=== PATIENT | female | born 2005 | race Caucasian/White ===

== ENCOUNTER 2025-03-22 03:00 | Observation (INO) ==
[2025-03-22] MEDS: ONDANSETRON INJ 2 MG/ML 2 ML VIAL IV STA (03:27)
[2025-03-22] MEDS: MoRPHine SULFATE 4 MG/ML 1 ML CARP\\VIAL IV STA (03:29)
[2025-03-22] MEDS: OPTIRAY 320 100ml IV ONE (04:00)
--- NOTE | 2025-03-22 05:46 | CT Scan Report ---
EXAM: CT abd pelvis IV con only CLINICAL HISTORY: epigastric pain TECHNIQUE: Contiguous axial images were obtained from the level of the diaphragm to the pubic symphysis with intravenous contrast. Coronal and sagittal reconstructions were likewise performed and indicated to increase the sensitivity for detecting clinically relevant pathology. If IV contrast material had not been administered, the likelihood of detecting abnormalities relevant to the patient's condition would have been substantially decreased. CT scan was performed according to ALARA (as low as reasonably achievable). COMPARISON: None. FINDINGS: The visualized lung bases are clear. The liver is normal in size and attenuation. No focal liver lesions are seen. There is no intra or extrahepatic biliary ductal dilatation. Hepatic vasculature is patent. The gallbladder is present. The spleen, pancreas, and adrenal glands are unremarkable. The kidneys are normal in size and attenuation. There is no hydronephrosis or perinephric fat stranding. No renal calculi or renal masses are identified. The ureters are normal in caliber and no ureteral calculi are seen. The bladder is normal in contour. Pelvic viscera are unremarkable. No focal or diffuse bowel wall thickening or evidence of bowel obstruction is identified. No imaging evidence of appendicitis. Abdominal and pelvic vasculature is patent. No adenopathy or fluid collections are seen. No aggressive appearing osseous lesions are identified. IMPRESSION: No significant abnormality detected Electronically signed by Tavo Casey 03-22-2025 05:46 AM
--- NOTE | 2025-03-22 05:54 | Emergency Department Note ---
Impression & Plan Acute epigastric pain, Nausea, Reflux gastritis ED Provider Note CHIEF COMPLAINT: epigastric pain HISTORY OF PRESENT ILLNESS: This 19 year old female patient presents to the emergency department via private vehicle for the second time this evening for epigastric pain. The patient describes a sharp and burning sensation in the upper portion of her abdomen. She states that she went home and fell asleep for about 30 minutes in an upright position, then developed flare up of pain again. Patient return to the emergency department due to the flareup of pain. The pain is not different than it was earlier. She describes a sharp and burning sensation. She did not take any additional medications at home for her pain. Patient was medicated earlier with IV acetaminophen, Zofran, Pepcid, Protonix, GI cocktail x 2. Patient denies any chest pain or dyspnea. Last menstrual period was 1 week ago. History provided by: Patient REVIEW OF SYSTEMS: A 10 system review of systems was performed with positives and pertinent negatives listed in the history of present illness. All other systems were reviewed and are negative. ALLERGIES: NKDA PHYSICAL EXAM: VITALS: Vitals are noted on the nurse's note and reviewed by myself. GENERAL: This is a 19-year-old female, in no acute distress, nondiaphoretic, well-developed well-nourished. SKIN: The skin was without rashes, erythema, edema, or bruising. There is no tenting of the skin. Capillary refill less than 2 seconds. HEAD: Normocephalic atraumatic. EARS: External auditory canals clear, tympanic membranes pearly fischer without erythema or effusion bilaterally. No hemotympanum. Negative gustafson sign EYES: Pupils equal round and reactive to light and accommodation. Conjunctivae without injection, sclerae without icterus. Extraocular movements intact. NOSE: Patent, turbinates without inflammation or discharge. No sinus tenderness. MOUTH: Mucous membranes moist. Tonsils are not enlarged. Pharynx without erythema or exudate. Uvula midline. Airway patent. Tongue does not deviate. NECK: Supple without nuchal rigidity. No lymphadenopathy. Cervical spine is nontender. No JVD. HEART: Regular rate and rhythm without murmurs gallops or rubs. LUNGS: Clear to auscultation bilaterally without wheezes, rales or rhonchi. No retractions or accessory muscle use. ABDOMEN: Positive bowel sounds x 4. Soft, nontender, without masses or organomegaly. Loja sign negative. No guarding or rebound tenderness. MUSCULOSKELETAL: No muscle atrophy, erythema, or edema noted. Full range of motion without joint tenderness in all extremities. No tenderness to palpation. Normal gait. Strength 5/5 throughout. NEURO: Patient was alert and oriented to person place and time. No focal neurological deficits. An order was placed for continuous monitoring specialist. The monitor showed a normal sinus rhythm at a ventricular rate of 60 bpm, per my interpretation. Imaging as interpreted by myself and the radiologist revealed no acute abnormality and CT of the abdomen/pelvis, with radiologist interpretation as above. I agree with the radiologist's findings as based upon my independent interpretation. EMERGENCY DEPARTMENT COURSE: The patient was evaluated as above. I did see the patient only a few hours ago in the emergency department at her previous ED visit. The patient states she got home and fell asleep in an upright position for about 30 minutes and then developed a flareup in pain. She returned to the emergency department due to the severe pain she was experiencing. Reviewed labs from earlier. No leukocytosis or anemia. No thrombocytopenia. Renal, hepatic function and electrolytes without significant abnormality. Lipase 14. hCG negative. Urinalysis negative for blood or evidence of infection. IV access was obtained. The patient was medicated with morphine and Zofran. CT imaging was completed and reviewed by myself and radiologist as noted. CT scan was negative for acute abnormality. Patient able to tolerate p.o. clear fluids. On reevaluation, patient notes some improvement in her pain, but continued to complain of severe pain. Patient medicated with repeat dose of morphine and Carafate. Discussion with the patient regarding options of care. Did offer admission/inpatient care vs. discharge with outpatient follow-up. Pt. would prefer to stay in the hospital due to her persistent pain. Do feel that this is a reasonable option. Case was discussed with the manager party. Case was discussed with [facility] hospitalist physician. Please see hospitalist dictation regarding ongoing management and final disposition of this patient. Case was discussed with the attending physician. This visit is during a period of high volume and high acuity in the emergency department. I attest that I have personally reviewed the patient medication list. I attest that I have reviewed the patient's blood pressure and it was found to be normal GCS: 15 In the evaluation and treatment of this patient the following differential diagnoses were entertained: appendicitis, diverticulitis, obstruction, inflammatory bowel disease, renal colic, PUD, biliary pathology, pancreatitis, mesenteric ischemia, aortic pathology, infections, genitourinary, UTI, perforated viscus, as well as others were entertained. The chart was completed utilizing [employer] Speech voice recognition software. Grammatical errors, random word insertions, pronoun errors, and incomplete sentences are an occasional consequence of this system due to software limitations, ambient noise, and hardware issues. Any formal questions or concerns about the content, text, or information contained within the body of this dictation should be directly addressed to the provider for clarification. Past Med/Surg History Problem List (Updated 03/22/25 @ 07:27 by Melina Pittman PA-C) Reflux gastritis (Acute) Nausea (Acute) Acute epigastric pain (Acute) Medical History Concussion Social History Smoking Status: Never smoker Preferred Language: Serbian Feels Safe at Home: Yes Allergies Allergies Allergy/AdvReac Type Severity Reaction Status Date / Time No Known Allergies Allergy Unverified 03/22/25 08:03 Home Meds Previous Rx's Medication Instructions Recorded omeprazole 40 mg capsule,delayed 40 mg PO DAILY #30 caps 03/22/25 release Results & Data (ED) Vital Signs Vital Signs - 24 hr 03/22/25 03:04 03/22/25 03:25 03/22/25 04:51 Temperature 36.4 C L Temperature Source Temporal Artery Scan Pulse Rate 80 61 Pulse Rate [Apical] 56 L Respiratory Rate 20 16 Respiratory Effort / Characteristics Non-Labored Spontaneous Non-Labored Respiratory Depth Normal Normal Respiratory Pattern Regular Blood Pressure 150/107 H Blood Pressure [Right Arm] 113/67 Blood Pressure Mean 121 Blood Pressure Mean [Right Arm] 82 Pulse Oximetry 98 98 Oxygen Delivery Method Room Air Room Air Sepsis Recent Fever Within 48 Hours No Sepsis New/Unexplained Change in Mental Status N/A Sepsis Action Taken by Nursing No Action Required 03/22/25 06:30 03/22/25 07:00 Temperature Temperature Source Pulse Rate 59 L Pulse Rate [Apical] 64 Respiratory Rate 16 13 Respiratory Effort / Characteristics Non-Labored Spontaneous Respiratory Depth Normal Respiratory Pattern Regular Blood Pressure 114/71 Blood Pressure [Right Arm] 110/74 Blood Pressure Mean 92 Blood Pressure Mean [Right Arm] 86 Pulse Oximetry 100 100 Oxygen Delivery Method Room Air Room Air Sepsis Recent Fever Within 48 Hours Sepsis New/Unexplained Change in Mental Status Sepsis Action Taken by Nursing Administered Medications Discontinued Medications Ioversol (Optiray 320 100ml) 92 ml IV ONCE ONE Stop: 03/22/25 04:01 Last Admin: 03/22/25 04:00 Dose: 92 ml Documented By: SH Morphine Sulfate (Morphine Sulfate 4 Mg/Ml 1 Ml Carp\Vial) 4 mg IV NOW STA Stop: 03/22/25 03:19 Last Admin: 03/22/25 03:29 Dose: 4 mg Documented By: abl Morphine Sulfate (Morphine Sulfate 2 Mg/Ml Carp) 2 mg IV NOW STA Stop: 03/22/25 06:58 Last Admin: 03/22/25 07:07 Dose: 2 mg Documented By: ECS Ondansetron HCl (Ondansetron Inj 2 Mg/Ml 2 Ml Vial) 4 mg IV NOW STA Stop: 03/22/25 03:19 Last Admin: 03/22/25 03:27 Dose: 4 mg Documented By: abl Sucralfate (Sucralfate 1 Gm/10 Ml Udc) 1 gm PO NOW STA Stop: 03/22/25 07:02 Last Admin: 03/22/25 07:07 Dose: 1 gm Documented By: ECS Imaging Data Radiologist's Impression: Abdomen/Pelvis CT 03/22/25 03:15 EXAM: CT abd pelvis IV con only CLINICAL HISTORY: epigastric pain TECHNIQUE: Contiguous axial images were obtained from the level of the diaphragm to the pubic symphysis with intravenous contrast. Coronal and sagittal reconstructions were likewise performed and indicated to increase the sensitivity for detecting clinically relevant pathology. If IV contrast material had not been administered, the likelihood of detecting abnormalities relevant to the patient's condition would have been substantially decreased. CT scan was performed according to ALARA (as low as reasonably achievable). COMPARISON: None. FINDINGS: The visualized lung bases are clear. The liver is normal in size and attenuation. No focal liver lesions are seen. There is no intra or extrahepatic biliary ductal dilatation. Hepatic vasculature is patent. The gallbladder is present. The spleen, pancreas, and adrenal glands are unremarkable. The kidneys are normal in size and attenuation. There is no hydronephrosis or perinephric fat stranding. No renal calculi or renal masses are identified. The ureters are normal in caliber and no ureteral calculi are seen. The bladder is normal in contour. Pelvic viscera are unremarkable. No focal or diffuse bowel wall thickening or evidence of bowel obstruction is identified. No imaging evidence of appendicitis. Abdominal and pelvic vasculature is patent. No adenopathy or fluid collections are seen. No aggressive appearing osseous lesions are identified. IMPRESSION: No significant abnormality detected Electronically signed by Tavo Casey 03-22-2025 05:46 AM Discharge Plan Visit Data Chief Complaint: Abdominal Pain Stated Complaint: ABD PAIN ED Provider: Devon Webster ED Midlevel Provider: Melina Pittman Discharge Problem: Acute epigastric pain, Nausea, Reflux gastritis Patient Disposition: Admitted As Inpatient Condition: Good Forms Stand Alone Forms: [facility] [employer] Prescriptions Prescriptions: No Action omeprazole 40 mg capsule,delayed release(DR/EC) 40 mg PO DAILY Qty: 30 1RF Referrals Referrals: [place] [Primary Care Provider] -
[2025-03-22] MEDS: MoRPHine SULFATE 2 MG/ML CARP IV STA (07:07)
[2025-03-22] MEDS: SUCRALFATE 1 GM/10 ML UDC PO STA (07:07)
--- NOTE | 2025-03-22 09:03 | History & Physical Report ---
"Date of Service March 22, 2025 Assessment & Plan (1) Acute epigastric pain: (2) Reflux gastritis: Plan Minda is a pleasant 19-year-old woman with past medical history of PCOS and gastric ulcers. She initially presented to the ED on 03/21 with epigastric pain that began 4 hours after eating buffalo chicken. She was discharged home from the ED, slept for 30 minutes at home, then the stabbing/burning epigastric pain returned so she came back to the ED. She is admitted under observation status for further workup of her epigastric pain. #Acute epigastric pain | Gastritis Suspect gastritis as her pain improved with PPI and Carafate therapies. No alarm features: No recent unintentional weight loss, progressive dysphagia, anemia, persistent vomiting, etc. - Labs unremarkable. CT A/P unremarkable - Protonix 40 mg IV BID - Carafate suspension QID - Zofran IV PRN nausea - H. pylori stool antigen ordered - Start clear liquid diet, can advance as tolerated - IVF maintenance with NSS at 80 cc/h - GI consulted, appreciate assistance #PCOS - continue metformin 1500 mg HS #Acne - continue spironolactone 150 mg HS VTE PPx: Low risk. Anticipate short LOS. Encourage ambulation. Consider chemoprophylaxis if prolonged stay Dispo: Observation on MedSurg Boyfriend updated at bedside on admission. Patient denies the need for me to update her parents - states she has been updating them via text. History of Present Illness Chief Complaint: Epigastric pain Primary Care Provider: [facility] Minda is a pleasant 19-year-old woman with past medical history of PCOS and gastric ulcers. She presented from home with epigastric abdominal pain. At the time of my exam, the patient was lying in bed in no acute distress. She states she presented to the ED last night with severe epigastric pain that began 4 hours after eating buffalo chicken and lying down; her workup was unremarkable and she was ultimately discharged home. When she got home, she slept for 30 minutes, and then the sharp stabbing sensation in her epigastrium returned, so she came back to the ED. She is lying in bed in no acute distress with her boyfriend present at bedside. She notes that she has had mild epigastric pain for 1 week but it acutely worsened last night. She describes the pain as a sharp and burning sensation in her epigastric region. Pain is worse when lying flat. She denies unintentional weight loss, dysphagia, abnormal bleeding, nausea or vomiting. Her last bowel movement was yesterday 03/21 and was normal for her. Last menses 1 week ago. She reports her prior gastric ulcers were 4-5 years ago when she had Strep and pneumonia. She takes metformin 1500 mg HS for PCOS and spironolactone 150 mg HS for acne. She does not use any supplemental oxygen at baseline. She is a student at [employer]. She denies alcohol or illicit drug use. Denies taking NSAIDs recently. Vitals on admission are stable and WNL. No labs drawn on this ED visit. However labs from ED visit yesterday evening were unremarkableno leukocytosis, H&H WNL, platelets WNL, electrolytes WNL, renal function WNL, liver enzymes WNL, lipase WNL. hCG negative. UA negative. CT A/P on admission reveals no significant abnormality. We discussed code status, patient wishes to be a full code. Allergies Allergy/AdvReac Type Severity Reaction Status Date / Time No Known Allergies Allergy Unverified 03/22/25 08:03 Home Medications Medication Instructions Recorded Confirmed Type metformin 500 mg tablet 1,500 mg PO DAILY 03/22/25 03/22/25 History omeprazole 40 mg capsule,delayed 40 mg PO DAILY #30 caps 03/22/25 03/22/25 Rx release spironolactone 50 mg tablet 50 mg PO DAILY 03/22/25 03/22/25 History Past Med/Surg History Problem List (Updated 03/22/25 @ 07:27 by Melina Pittman PA-C) Reflux gastritis (Acute) Nausea (Acute) Acute epigastric pain (Acute) Medical History Concussion Social History Smoking Status: Never smoker Hx Alcohol Use: No Hx Substance Use: No Preferred Language: Sammarinese Communication Ability: Effective Respiratory Care Practitioner Required: No Current Living Situation Comment: apt with friends Other Information That Helps Us Care for You: No Feels Safe at Home: Yes Safety Concerns: Feels Safe At This Time Assistive Devices: Glasses Review of Systems Review of Systems: All systems reviewed & are unremarkable except as noted in HPI & below Physical Exam Physical Exam: General: No acute distress, nondiaphoretic, well-developed, well-nourished. Skin: Warm, dry. No rashes or peripheral edema noted. Cardiac: Regular rate and rhythm without murmurs gallops or rubs. Pulm: Clear to auscultation bilaterally without wheezes, rales or rhonchi. Normal respiratory effort. 97% on room air. Abdominal: Soft, nondistended. Tender throughout abdomen but most prominent in epigastric region. No rebound or guarding. Bowel sounds present. Neuro: A&O x3. No focal neurological deficits. Results & Data Results & Data Vital Signs (Past 12 Hours) Vital Signs Temp Pulse Pulse Resp BP BP Pulse Ox 03/22/25 08:16 58 L 03/22/25 08:00 58 L 18 90/68 L 99 03/22/25 07:00 59 L 13 114/71 100 03/22/25 06:30 64 16 110/74 100 03/22/25 04:51 56 L 16 113/67 98 03/22/25 03:25 61 03/22/25 03:04 97.5 F L 80 20 150/107 H 98 O2 Del Method 03/22/25 08:16 03/22/25 08:00 Room Air 03/22/25 07:00 Room Air 03/22/25 06:30 Room Air 03/22/25 04:51 Room Air 03/22/25 03:25 03/22/25 03:04 Room Air Laboratory Results Reviewed CBC, chemistries, UA from initial ED visit PG Care Time/CCT Total # of Minutes Spent Total Time Spent with Patient: Total time spent is greater than 50% in coordination of care (as documented) at patient's floor/unit and/or counseling patient: Coding Level of Care Code 13066 INT INP/OBS CARE 3/75MIN Diagnoses Acute epigastric pain R10.13 Reflux gastritis K29.60"
[2025-03-22] MEDS ORDERED: ALUMINUM/MAGNESIUM SUSP 30 ML UDC PO PRN (11:41)
[2025-03-22] MEDS ORDERED: ACETAMINOPHEN 325 MG TAB PO PRN (11:41)
[2025-03-22] MEDS ORDERED: POLYETHYLENE (MIRALAX) 17 GM PACK PO PRN (11:41)
[2025-03-22] MEDS ORDERED: ONDANSETRON INJ 2 MG/ML 2 ML VIAL IV PRN (11:41)
[2025-03-22] MEDS: SUCRALFATE 1 GM/10 ML UDC PO SCH (12:09)
[2025-03-22] MEDS: PANTOprazole 40 MG/10 ML SYR IV SCH (12:12)
--- NOTE | 2025-03-22 12:52 | Gastrointestinal Consultation ---
Date of Consultation March 22, 2025 Assessment & Plan (1) Acute epigastric pain: Plan Suspect a component of gastritis, with gastric ulcers being in the differential given history of them. - continue with protonix 40mg bid and carafate 1 gm qid. - h pylori stool antigen is ordered. can await results. - could consider gallbladder evaluation. - unfortunately, she has eaten just recently. If ongoing symptoms, could consider EGD. -Further recommendations to come with Supervising GI provider on medical rounds. Please see co-signature comments. Supervising Physician Co-Signing Physician Notes Sharp epigastric pain for the last few days. Symptoms similar to previous peptic ulcer disease. Patient states she had an endoscopy of 4 years ago which showed an ulcer. Etiology was felt to related to ibuprofen and/or stress. This was performed elsewhere. Patient does not use NSAIDs at present she is a non- smoker does not regularly ingest alcohol. Is an under increased amount of stress related to exam time. Patient on PPI and Carafate. Keep n.p.o. possible EGD tomorrow. If feeling improved potentially discharge with outpatient follow-up. Differential diagnosis peptic ulcer disease nonulcer dyspepsia gallbladder attack (patient does have a history of yoyo dieting). Ultrasound ordered. History of Present Illness Reason for Consultation: epigastric pain Requesting Physician: Kathy GARCIA Attending Physician: Lauro Schwartz MD History of Present Illness Patient is a 19 year old female who presented to the ED with complaints of sudden severe epigastric pain last evening. she notes that this has been off and on for the past two weeks but had gotten severe last evening. Reportedly this began after eating buffalo chicken. she reports that about 4 years ago she had ulcers in the stomach that was diagnosed by an EGD she had in [place]. she does not report regular reflux and denies any nsaid use. no antacid use. she had just eaten some broth, jello, and sherbert but had worsening pain. the remainder of the GI ros are unremarkable. 03/21/25 wbc 7.39, hgb 14.6, hct 40.6, plts 233, Na 139, K 3.6, BUN 16, Cr 0.68, t bili 0.7, AST 15, ALT 5, ALK 80, lipase 14. CT A/P 03/22/25 - No significant abnormality detected Allergies Allergy/AdvReac Type Severity Reaction Status Date / Time No Known Allergies Allergy Unverified 03/22/25 08:03 Home Medications Medication Instructions Recorded Confirmed Type metformin 500 mg tablet 1,500 mg PO DAILY 03/22/25 03/22/25 History omeprazole 40 mg capsule,delayed 40 mg PO DAILY #30 caps 03/22/25 03/22/25 Rx release spironolactone 50 mg tablet 50 mg PO DAILY 03/22/25 03/22/25 History Patient History Medical History Concussion Social History Smoking Status: Never smoker Hx Alcohol Use: No Hx Substance Use: No Preferred Language: Ivorian Communication Ability: Effective Final Tester Required: No Current Living Situation Comment: apt with friends Other Information That Helps Us Care for You: No Feels Safe at Home: Yes Safety Concerns: Feels Safe At This Time Assistive Devices: Glasses Review of Systems Review of Systems: All systems reviewed & are unremarkable except as noted in HPI & below Physical Exam Constitutional: WD/WN, vitals as above Respiratory: normal respiratory effort, lungs clear to auscultation Cardiovascular: Rate/Rhythm: regular rate and regular rhythm Gastrointestinal (Abdomen): mid epigastric tenderness, no guarding, soft, normal bowel sounds. Psychiatric: Orientation: alert and oriented x 3 Results & Data Vital Signs (Past 12 Hours) Vital Signs Temp Pulse Pulse Resp BP BP Pulse Ox 03/22/25 11:04 58 L 20 124/78 95 03/22/25 09:23 59 L 20 115/72 96 03/22/25 08:16 58 L 03/22/25 08:00 58 L 18 90/68 L 99 03/22/25 07:00 59 L 13 114/71 100 03/22/25 06:30 64 16 110/74 100 03/22/25 04:51 56 L 16 113/67 98 03/22/25 03:25 61 03/22/25 03:04 97.5 F L 80 20 150/107 H 98 O2 Del Method 03/22/25 11:04 03/22/25 09:23 Room Air 03/22/25 08:16 03/22/25 08:00 Room Air 03/22/25 07:00 Room Air 03/22/25 06:30 Room Air 03/22/25 04:51 Room Air 03/22/25 03:25 03/22/25 03:04 Room Air Coding Level of Care Code 37395 IN/OBS CONSULT LVL 4,60M Diagnoses Acute epigastric pain R10.13
[2025-03-22] MEDS: SODIUM CHLORIDE 0.9% 1,000 ML IV SCH (13:26)
--- NOTE | 2025-03-22 17:56 | Ultrasound Report ---
Technique: Sonography was performed of the right upper quadrant of the abdomen Findings: There is no sign of cirrhosis or significant fatty infiltration. No definite liver mass is seen There is no evidence of cholelithiasis or cholecystitis. The gallbladder has a normal wall thickness and no adjacent fluid is seen. No definite sonographic Loja sign was detected. There is no intrahepatic or extrahepatic bile duct dilatation. The common bile duct measures 3 mm The right kidney measures 11 cm in length. There is no hydronephrosis. No definite renal calculus or mass is seen The visualized pancreas, aorta, and IVC appear unremarkable. No ascites is seen Impression: Unremarkable right upper quadrant abdominal sonogram Electronically signed by Steve Landers 03-22-2025 5:56 PM
[2025-03-22] MEDS: SPIRONOLACTONE 25 MG TAB PO SCH (21:42)
[2025-03-23 06:14] LABS: Hematocrit (blood only) 37.3 % (37.0-47.0); Hemoglobin 13.1 g/dL (12.0-16.0); Mean Corpuscular Hemoglobin 33.2 pg (25.0-34.0); Mean Corpuscular Volume 94.4 fL (80.0-100.0); Platelet Count 184 K/uL (130-400); RDW Standard Deviation 39.6 fL (36.4-46.3); Red Blood Count 3.95 M/uL (4.20-5.40); White Blood Count 5.29 K/ul (4.8-10.8)
[2025-03-23 06:30] LABS: Alanine Aminotransferase 3.0 U/L (7-52); Albumin Globulin Ratio 2.0 (0.9-2); Albumin Level 4.1 gm/dl (3.4-5.0); Alkaline Phosphatase 67.0 U/L (34-104); Anion Gap 7.0 (3-11); Bilirubin,Total 0.8 mg/dl (0.2-1.0); Blood Urea Nitrogen 9.0 mg/dl (6-23); Calcium 8.6 mg/dl (8.6-10.3); Carbon Dioxide 25.0 mmol/L (21-32); Chloride 108.0 mmol/L (98-107); Creatinine Clr Calc Pharmacy 150.9 ml/min; Globulin 2.0 gm/dl (2.5-4.0); Glucose 89.0 mg/dl (70-99(Fasting)); Potassium 3.7 mmol/L (3.5-5.1); Sodium 140.0 mmol/L (136-145); Total Protein 6.1 gm/dl (6.0-8.3)
--- NOTE | 2025-03-23 06:59 | Gastroenterology Progress Note ---
Date of Service March 23, 2025 Assessment & Plan (1) Acute epigastric pain: Plan: Clinically improved on omeprazole. Continue present regimen. Plans to have outpatient colonoscopy at home during winter. Call if any further issues. Okay from GI standpoint for discharge. Admission and Anticipated Discharge Date Admission Date: March 22, 2025 Subjective No abdominal pain mild nausea no shortness of breath no chest pain Physical Exam Physical Exam: No acute distress Respiratory rate regular Cardiac rhythm regular Abdomen soft nontender Results & Data Results & Data Vital Signs (Past 12 Hours) Vital Signs Temp Pulse Resp BP Pulse Ox O2 Del Method 03/22/25 23:00 36.6 C 55 L 16 101/66 100 Room Air Medications Administered Home Medications Medication Instructions Recorded Confirmed Last Taken metformin 500 mg tablet 1,500 mg PO DAILY 03/22/25 03/22/25 2 Days Ago ~03/20/25 omeprazole 40 mg capsule,delayed 40 mg PO DAILY #30 caps 03/22/25 03/22/25 Unknown release spironolactone 50 mg tablet 50 mg PO DAILY 03/22/25 03/22/25 2 Days Ago ~03/20/25 Active Medications Generic Name Dose Route Start Last Admin Trade Name Freq PRN Reason Stop Dose Admin Pantoprazole Sodium 40 mg in 10 mls @ 5 mls/min 03/22/25 11:41 03/22/25 22:13 Protonix IV 04/21/25 11:40 5 mls/min BID CALEB Administration Sodium Chloride 1,000 mls @ 80 mls/hr 03/22/25 11:41 03/23/25 01:53 Nss IV 03/25/25 11:40 80 mls/hr .[id number] CALEB Administration Metformin HCl 1,500 mg 03/22/25 21:00 03/22/25 21:42 Metformin Hcl 500 Mg Tab PO 04/21/25 20:59 Not Given HS CALEB Spironolactone 50 mg 03/22/25 21:00 03/22/25 21:42 Spironolactone 25 Mg Tab PO 04/21/25 20:59 Not Given HS CALEB Sucralfate 1 gm 03/22/25 11:41 03/22/25 21:43 Sucralfate 1 Gm/10 Ml Udc PO 04/21/25 11:40 1 gm QID CALEB Administration PG Care Time/CCT Total # of Minutes Spent Total Time Spent with Patient: Total time spent is greater than 50% in coordination of care (as documented) at patient's floor/unit and/or counseling patient: Coding Level of Care Code 39101 SUB INP/OBS CARE 2/35MIN Diagnoses Acute epigastric pain R10.13
--- NOTE | 2025-03-23 09:20 | Anesthesiology Consultation ---
Date of Service March 23, 2025 Assessment & Plan (1) Encounter for pre-operative examination: Chart Review Chart Review: Acceptable Risk for Surgery History Surgery Operation Date: 03/23/25 10:00 Proposed Procedures p Esophagogastroduodenoscopy - Eliazar Gray MD Height/Weight Height: 5 ft 8 in Weight: 71.5 kg Allergies Allergy/AdvReac Type Severity Reaction Status Date / Time No Known Allergies Allergy Unverified 03/22/25 08:03 Medications Home Medications Medication Instructions Recorded Confirmed Last Taken metformin 500 mg tablet 1,500 mg PO DAILY 03/22/25 03/22/25 2 Days Ago ~03/20/25 omeprazole 40 mg capsule,delayed 40 mg PO DAILY #30 caps 03/22/25 03/22/25 Unknown release spironolactone 50 mg tablet 50 mg PO DAILY 03/22/25 03/22/25 2 Days Ago ~03/20/25 Active Medications Generic Name Dose Route Start Last Admin Trade Name Freq PRN Reason Stop Dose Admin Pantoprazole Sodium 40 mg in 10 mls @ 5 mls/min 03/22/25 11:41 03/23/25 09:02 Protonix IV 04/21/25 11:40 5 mls/min BID CALEB Administration Sodium Chloride 1,000 mls @ 80 mls/hr 03/22/25 11:41 03/23/25 01:53 Nss IV 03/25/25 11:40 80 mls/hr .[id number] CALEB Administration Metformin HCl 1,500 mg 03/22/25 21:00 03/22/25 21:42 Metformin Hcl 500 Mg Tab PO 04/21/25 20:59 Not Given HS CALEB Spironolactone 50 mg 03/22/25 21:00 03/22/25 21:42 Spironolactone 25 Mg Tab PO 04/21/25 20:59 Not Given HS CALEB Sucralfate 1 gm 03/22/25 11:41 03/23/25 08:43 Sucralfate 1 Gm/10 Ml Udc PO 04/21/25 11:40 Not Given QID CALEB Past Medical History Medical History (Updated 03/23/25 @ 09:19 by Josr Barone MD) Peptic ulcer disease Concussion Past Surgical History Surgical History (Updated 03/23/25 @ 09:19 by Josr Barone MD) Hx of esophagogastroduodenoscopy Social History Smoking Status: Never smoker Hx Alcohol Use: No Hx Substance Use: No Physical Exam Vital Signs Last Vital Signs Temp 36.8 C 03/23/25 07:58 Pulse 68 03/23/25 07:58 Resp 16 03/23/25 07:58 BP 100/59 L 03/23/25 07:58 Pulse Ox 98 03/23/25 07:58 O2 Del Method Room Air 03/23/25 07:58 Testing Laboratory Results 03/23/25 05:27 03/23/25 05:27
[2025-03-23] MEDS ORDERED: ATROPINE SULFATE 0.1 MG/ML 10ML SYR IV PRN (09:28)
[2025-03-23] MEDS ORDERED: PROMETHAZINE HCL 6.25 MG in SODIUM CHLORIDE 0.9% 50 ML IV PRN (09:28)
[2025-03-23] MEDS ORDERED: PROPOFOL IV EMULSION 10 MG/ML 20 ML VIAL IV ONE (09:49)
[2025-03-23] MEDS ORDERED: LIDOCAINE 2% 2 ML VIAL/AMP(20MG/ML) INFIL ONE (09:49)
--- NOTE | 2025-03-23 09:55 | History & Physical Bridge Note ---
Date of Service March 23, 2025 History & Physical Bridge Note Patient decided to proceed with endoscopy. Endoscopy was performed which was normal. Biopsies were taken to rule out Helicobacter pylori. Can advance her diet to regular diet. She can be discharged from a GI standpoint.
--- NOTE | 2025-03-23 09:59 | GI REPORT ---
[facility] Patient: WILLIAM TREJO : 2005 Sex at : Female Age: 19 Years Procedure: Upper GI endoscopy Date: 03/23/2025 Attending Physician: Eliazar Gray MD Referring MD: Lauro Schwartz Indications: - Epigastric abdominal pain Medications: - Monitored Anesthesia Care Complications: - No immediate complications. Procedure: - Prior to the procedure, a History and Physical was performed, and patient medications and allergies were reviewed. The patient's tolerance of previous anesthesia was also reviewed. The risks and benefits of the procedure and the sedation options and risks were discussed with the patient. All questions were answered, and informed consent was obtained. [Anticoagulant Agents] [Days Prior to Procedure]. [ASA Grade]. After reviewing the risks and benefits, the patient was deemed in satisfactory condition to undergo the procedure. - The EGD Scope was introduced through the mouth and advanced to the second part of the duodenum. - The upper GI endoscopy was accomplished without difficulty. - The patient tolerated the procedure well. Findings: - The examined esophagus was normal. - The entire examined stomach was normal. Biopsies were taken with a cold forceps for Helicobacter pylori testing. - The examined duodenum was normal. Impression: - Normal esophagus. - Normal stomach. Biopsied. - Normal examined duodenum. Recommendation: - Resume previous diet. - Patient has a contact number available for emergencies. The signs and symptoms of potential delayed complications were discussed with the patient. Return to normal activities tomorrow. Written discharge instructions were provided to the patient. Procedure Code(s): - 35287, Esophagogastroduodenoscopy, flexible, transoral; with biopsy, single or multiple Diagnosis Code(s): - R10.13, Epigastric pain CPT(R) - 2024 copyright [employer]. All Rights Reserved. The CPT codes, CCI edits and ICD codes generated are intended as suggestions and were generated based on input data. These codes are preliminary and upon hvac journeyman review may be revised to meet current compliance and payer requirements. The provider is responsible for the final determination of appropriate codes, and modifiers. Eliazar Gray MD This document has been electronically signed. Note Initiated:03/23/2025 Note Completed:03/23/2025 9:57 AM [id number]
--- NOTE | 2025-03-23 10:00 | Anesthesiology Progress Note ---
Date of Service March 23, 2025 Anesthesia Post Procedure Vital Signs Vital Signs: Temp Pulse Pulse Resp BP BP Pulse Ox 03/23/25 09:54 36.5 C 64 12 111/54 L 94 03/23/25 07:58 36.8 C 68 16 100/59 L 98 03/22/25 23:00 36.6 C 55 L 16 101/66 100 03/22/25 15:52 36.7 C 60 16 106/69 99 03/22/25 13:19 36.8 C 66 16 113/71 97 03/22/25 11:04 58 L 20 124/78 95 O2 Del Method O2 Flow Rate 03/23/25 09:54 Nasal Cannula 3 03/23/25 07:58 Room Air 03/22/25 23:00 Room Air 03/22/25 15:52 Room Air 03/22/25 13:19 Room Air 03/22/25 11:04 Pain Intensity Abdomen: Pain Intensity: 4 Transfer of Care Handoff Completed per policy Notes Mental Status: alert / awake / arousable Patient Amnestic to Procedure: Yes Nausea / Vomiting: adequately controlled Pain: adequately controlled Airway Patency, RR, SpO2: stable & adequate BP & HR: stable & adequate Hydration State: stable & adequate Anesthetic Complications: no major complications apparent
--- NOTE | 2025-03-23 13:05 | Discharge Summary ---
"Discharge Summary Date of Service March 23, 2025 Principal Dx & Hospital Course #1 = Principal Diagnosis (1) Acute epigastric pain: (2) Reflux gastritis: Hilton Perla is a pleasant 19-year-old woman with past medical history of PCOS and gastric ulcers. She initially presented to the ED on 03/21 with epigastric pain that began 4 hours after eating buffalo chicken. She was discharged home from the ED, slept for 30 minutes at home, then the stabbing/burning epigastric pain returned so she came back to the ED. She is admitted under observation status for further workup of her epigastric pain. #Acute epigastric pain | Gastritis No alarm features: No recent unintentional weight loss, progressive dysphagia, anemia, persistent vomiting, etc. - Labs unremarkable. CT A/P unremarkable - GI consulted - s/p EGD - unremarkable. Normal esophagus, stomach, duodenum. Biopsies obtained for H. pylori testing - No gastritis or gastric ulcers were identified on EGD, patient's symptoms improved with these treatments so they will be continued empirically for now - Continue omeprazole 40 mg BID and Carafate suspension 1 g QID until PCP follow-up appointment. Determination can be made at that time if further treatment is warranted - Regular diet as tolerated, encouraged to avoid spicy foods for now #PCOS - continue metformin 1500 mg HS #Acne - continue spironolactone 150 mg HS VTE PPx: Ambulation Dispo: Discharged home 03/23 Notes For Next Care Provider Epigastric pain significantly improved following PPI twice daily and Carafate 4 times daily. No gastritis or gastric ulcers were identified on EGD, however treatment with these medications were continued on discharge given symptomatic improvement. Encouraged patient to continue these medications until she follows up with her PCP and a determination can be made at that time if she needs further treatment. Medication Changes From Visit Omeprazole 40 mg p.o. twice daily Carafate suspension 1 g 4 times daily Admission HPI Per Admitting Provider Minda is a pleasant 19-year-old woman with past medical history of PCOS and gastric ulcers. She presented from home with epigastric abdominal pain. At the time of my exam, the patient was lying in bed in no acute distress. She states she presented to the ED last night with severe epigastric pain that began 4 hours after eating buffalo chicken and lying down; her workup was unremarkable and she was ultimately discharged home. When she got home, she slept for 30 minutes, and then the sharp stabbing sensation in her epigastrium returned, so she came back to the ED. She is lying in bed in no acute distress with her boyfriend present at bedside. She notes that she has had mild epigastric pain for 1 week but it acutely worsened last night. She describes the pain as a sharp and burning sensation in her epigastric region. Pain is worse when lying flat. She denies unintentional weight loss, dysphagia, abnormal bleeding, nausea or vomiting. Her last bowel movement was yesterday 03/21 and was normal for her. Last menses 1 week ago. She reports her prior gastric ulcers were 4-5 years ago when she had Strep and pneumonia. She takes metformin 1500 mg HS for PCOS and spironolactone 150 mg HS for acne. She does not use any supplemental oxygen at baseline. She is a student at [employer]. She denies alcohol or illicit drug use. Denies taking NSAIDs recently. Vitals on admission are stable and WNL. No labs drawn on this ED visit. However labs from ED visit yesterday evening were unremarkableno leukocytosis, H&H WNL, platelets WNL, electrolytes WNL, renal function WNL, liver enzymes WNL, lipase WNL. hCG negative. UA negative. CT A/P on admission reveals no significant abnormality. We discussed code status, patient wishes to be a full code. Discharge Exam General: No acute distress, nondiaphoretic, well-developed, well-nourished. Skin: Warm, dry. No rashes or peripheral edema noted. Cardiac: Regular rate and rhythm without murmurs gallops or rubs. Pulm: Clear to auscultation bilaterally without wheezes, rales or rhonchi. Normal respiratory effort. 97% on room air. Abdominal: Soft, nondistended. Mild tenderness in epigastric regionmuch improved compared to admission. No rebound or guarding. Bowel sounds present. Neuro: A&O x3. No focal neurological deficits. Discharge Plan Discharge Items Patient Disposition: Home - Self-Care Reason For Visit: EPIGASTRIC PAIN Discharge Diagnosis: Epigastric pain Condition on Discharge: Good Activity: Resume your previous activity Non-emergency contact: Primary Care Provider Call non-emergency contact if: you have any medication questions, your symptoms worsen, your pain is not controlled and you have a fever Follow-up/Referrals: [facility] [Primary Care Provider] - Diet: Regular Addtl Attending Provider Instructions: Minda, You were observed overnight in the hospital due to epigastric pain. You had a CT scan of your abdomen pelvis which did not show any acute abnormalities. Your laboratory studies are normal. You were evaluated by the GI team who performed an EGD (upper scope) which showed a normal esophagus, normal stomach, and normal duodenum. Biopsies were taken for H. pylori testing. No gastritis or gastric ulcers were identified on your EGD. Upon discharge from the hospital: * Take omeprazole 40 mg twice daily and Carafate suspension 1 g 4 times daily. Although no gastritis or gastric ulcers were found on your scope, it appears as though these medications have been relieving her symptoms so I recommend continuing them until you see your PCP. A determination can be made at that time if you need to continue taking these further. * Follow a bland diet to start, then you can advance back to your regular diet as tolerated. I recommend avoiding spicy foods for now. * Please follow up with your PCP in 1-2 weeks. Please return to the hospital if you experience any of the following: Severe abdominal pain, inability to tolerate oral intake, signs of blood in your stool (bright red blood or black tarry stools), difficulty swallowing, chest pain, difficulty breathing, passing out, confusion, or any other symptoms concerning for you. It was a pleasure taking care of you while you were in the hospital, Kathy Smiley PA-C Pending Studies at Discharge: No Stand-Alone Forms: [facility] Sm[facility] Cess[facility] Medications and DC Order Prescriptions: New sucralfate 100 mg/mL Suspension 1 g PO QID Qty: 300 0RF Continued metformin 500 mg Tablet 1,500 mg PO DAILY spironolactone 50 mg Tablet 50 mg PO DAILY Changed omeprazole 40 mg capsule,delayed release(DR/EC) 40 mg PO BID Qty: 30 1RF Discharge Orders: Discharge Order (Routine); Ordered 03/23/25 Ordered By: Kathy Smiley Admission Data Admit Date/Time: 03/22/25 08:53 Attending Provider: Lauro Schwartz Admit Provider: Lauro Schwartz Primary Care Provider: [facility] Other Providers: Lauro Schwartz; Tu Ariza Hospital Stay Data Consultations 03/22/25 07:27 ED Decision to Admit Stat 03/22/25 11:41 Consult Gastroenterology Routine Procedures Performed Operation Date: 03/23/25 10:00 Actual Procedures p Esophagogastroduodenoscopy with Biopsy(Not Applicable) - Eliazar Gray MD Diagnostic Imagining Performed Abdomen/Pelvis CT 03/22/25 03:15 EXAM: CT abd pelvis IV con only CLINICAL HISTORY: epigastric pain TECHNIQUE: Contiguous axial images were obtained from the level of the diaphragm to the pubic symphysis with intravenous contrast. Coronal and sagittal reconstructions were likewise performed and indicated to increase the sensitivity for detecting clinically relevant pathology. If IV contrast material had not been administered, the likelihood of detecting abnormalities relevant to the patient's condition would have been substantially decreased. CT scan was performed according to ALARA (as low as reasonably achievable). COMPARISON: None. FINDINGS: The visualized lung bases are clear. The liver is normal in size and attenuation. No focal liver lesions are seen. There is no intra or extrahepatic biliary ductal dilatation. Hepatic vasculature is patent. The gallbladder is present. The spleen, pancreas, and adrenal glands are unremarkable. The kidneys are normal in size and attenuation. There is no hydronephrosis or perinephric fat stranding. No renal calculi or renal masses are identified. The ureters are normal in caliber and no ureteral calculi are seen. The bladder is normal in contour. Pelvic viscera are unremarkable. No focal or diffuse bowel wall thickening or evidence of bowel obstruction is identified. No imaging evidence of appendicitis. Abdominal and pelvic vasculature is patent. No adenopathy or fluid collections are seen. No aggressive appearing osseous lesions are identified. IMPRESSION: No significant abnormality detected Electronically signed by Tavo Casey 03-22-2025 05:46 AM Gallbladder Ultrasound 03/22/25 15:08 Technique: Sonography was performed of the right upper quadrant of the abdomen Findings: There is no sign of cirrhosis or significant fatty infiltration. No definite liver mass is seen There is no evidence of cholelithiasis or cholecystitis. The gallbladder has a normal wall thickness and no adjacent fluid is seen. No definite sonographic Loja sign was detected. There is no intrahepatic or extrahepatic bile duct dilatation. The common bile duct measures 3 mm The right kidney measures 11 cm in length. There is no hydronephrosis. No definite renal calculus or mass is seen The visualized pancreas, aorta, and IVC appear unremarkable. No ascites is seen Impression: Unremarkable right upper quadrant abdominal sonogram Electronically signed by Steve Landers 03-22-2025 5:56 PM Pending Results Patient Have Any Pending Studies at Discharge: No Discharge Instructions Given to Patient (Per Discharging Provider) Mnida, You were observed overnight in the hospital due to epigastric pain. You had a CT scan of your abdomen pelvis which did not show any acute abnormalities. Your laboratory studies are normal. You were evaluated by the GI team who performed an EGD (upper scope) which showed a normal esophagus, normal stomach, and normal duodenum. Biopsies were taken for H. pylori testing. No gastritis or gastric ulcers were identified on your EGD. Upon discharge from the hospital: * Take omeprazole 40 mg twice daily and Carafate suspension 1 g 4 times daily. Although no gastritis or gastric ulcers were found on your scope, it appears as though these medications have been relieving her symptoms so I recommend continuing them until you see your PCP. A determination can be made at that time if you need to continue taking these further. * Follow a bland diet to start, then you can advance back to your regular diet as tolerated. I recommend avoiding spicy foods for now. * Please follow up with your PCP in 1-2 weeks. Please return to the hospital if you experience any of the following: Severe abdominal pain, inability to tolerate oral intake, signs of blood in your stool (bright red blood or black tarry stools), difficulty swallowing, chest pain, difficulty breathing, passing out, confusion, or any other symptoms concerning for you. It was a pleasure taking care of you while you were in the hospital, Kathy Smiley PA-C Total Time Total Time Spent Total Time Spent (In Minutes): Greater than 30 minutes spent completing this discharge process including direct patient care, medication reconciliation, documentation, review of labs and images, and coordination of care. Coding Level of Care Code 31617 INP/OBS DISCH >30 MIN Diagnoses Acute epigastric pain R10.13 Reflux gastritis K29.60"
== END 2025-03-23 13:30 | disposition home or self-care (01) ==
LOC: SUATTDRO → EDINP 03:00 → ED 03:00 → 3E 11:42